=== PATIENT | female | born 1960 | race Caucasian/White ===

== ENCOUNTER 2017-10-06 13:26 | Emergency (ER) | payer BC, OTHER ==
[~2017-10-06] VITALS: Ht 162.6 cm; Wt 151.5 kg
[2017-10-06 13:44] VITALS: BP_SYST 145
[2017-10-06] MEDS ORDERED: LISI10TA5 PO (14:02)
[2017-10-06] MEDS ORDERED: VITD2000 PO (14:02)
[2017-10-06] MEDS ORDERED: HYDR50TA3 PO (14:02)
[2017-10-06] MEDS ORDERED: MONT10TA25 PO (14:02)
[2017-10-06] MEDS ORDERED: ASPI-1063 PO (14:02)
[2017-10-06] MEDS ORDERED: LEVO75TA7 PO (14:02)
[2017-10-06] MEDS ORDERED: FEXO-38 PO (14:02)
[2017-10-06] MEDS ORDERED: DILT30TA36 PO (14:02)
[2017-10-06] MEDS ORDERED: GABA-531 PO (14:02)
[2017-10-06] MEDS ORDERED: FURO-150 PO (14:02)
[2017-10-06] MEDS ORDERED: GLUXR500 PO (14:02)
[2017-10-06] MEDS ORDERED: MELO15TA13 PO (14:02)
--- NOTE | 2017-10-06 14:54 | NUR ---
Dr. Crowley at bedside for evaluation
--- NOTE | 2017-10-06 14:56 | NUR ---
Left hip pain, left hand pain after her knee gave out and she used her hand to brace when she fell backwards. No deformity to left leg, left hand +bruising to palm, no deformity. +CMS. Pt states that she was putting ice on the hand prior to arrival.
--- NOTE | 2017-10-06 15:10 | NUR ---
Xray at bedside, pt tolerated well.
[2017-10-06 15:48] VITALS: BP_SYST 133
--- NOTE | 2017-10-06 15:48 | NUR ---
Patient given written and verbal discharge instructions and verbalizes understanding. ER MD discussed with patient the results and treatment provided. Patient in stable condition. ID arm band removed. Rx of Motrin given. Patient educated on pain management and to follow up with PMD. Pain Scale 2. Opportunity for questions provided and answered. Medication side effect fact sheet provided.
== END 2017-10-06 15:48 | disposition home or self-care (01) ==
LOC: SED 13:26
DX: S60.222A Contusion of left hand, initial encounter (principal); S80.02XA Contusion of left knee, initial encounter; E11.9 Type 2 diabetes mellitus without complications; I10 Essential (primary) hypertension; E66.01 Morbid (severe) obesity due to excess calories; Z68.43 Body mass index [BMI] 50.0-59.9, adult; Z85.42 Personal history of malignant neoplasm of other parts of uterus; Z90.710 Acquired absence of both cervix and uterus; Z79.82 Long term (current) use of aspirin; Z79.899 Other long term (current) drug therapy; W19.XXXA Unspecified fall, initial encounter; Y93.89 Activity, other specified; Y92.89 Other specified places as the place of occurrence of the external cause; Y99.8 Other external cause status
CPT/HCPCS: 73502; 73560-TC; 99284